=== PATIENT | female | born 1980 | race Caucasian/White ===

== ENCOUNTER 2025-04-18 12:19 | Emergency (ER) | payer OTHER, SELFPAY ==
[2025-04-18 12:19] VITALS: BP 174/100; PULSE 108; RESP 18; TEMP 36.9; O2SAT 98; BMI 33.5
--- NOTE | 2025-04-18 14:08 | EKG12_ITS ---
Test Reason : ANXIETY Blood Pressure : */* mmHG Vent. Rate : 102 BPM Atrial Rate : 102 BPM P-R Int : 132 ms QRS Dur : 106 ms QT Int : 350 ms P-R-T Axes : 61 8 22 degrees QTcB Int : 456 ms Sinus tachycardia Otherwise normal ECG Confirmed by Julian Shipman ([id number]), photo editor PERRY MATHEW ([id number]) on 04/22/2025 6:16:52 AM Referred By: Confirmed By: Julian Shipman
[2025-04-18] MEDS: 0.9% Normal Saline (1000mL) 1,000 ML 999 ML IV (14:19)
[2025-04-18 14:29] LABS: Hematocrit 40.3 % (37-47); Hemoglobin 13.1 g/dL (12.0-15.0); Immature Granulocytes Count 0.070 X10^3/uL (0.0-0.0); Mean Corp Hgb Conc 32.5 g/dL (32-36); Mean Corpuscular Volume 85.7 fL (81-99); Mean Platelet Vol. 9.8 fl (6.2-12.0); NRBC Flagged by Analyzer 0 % (0-5); Platelet Count 263 K/mm3 (150-450); RBC Distribution Width CV 13.5 % (11.6-14.6); RBC Distribution Width SD 42.3 fl (35.1-43.9); Red Blood Count 4.70 M/mm3 (4.2-5.4); White Blood Count 7.1 K/mm3 (4.4-11.0)
--- NOTE | 2025-04-18 14:30 | RAD_ITS ---
PROCEDURE: CHEST PA AND LATERAL 04/18/2025 REASON FOR EXAM: COUGH TECHNIQUE: Procedure Code: RADCXR Modality: DX Procedure: CHEST PA AND LATERAL FINDINGS: No focal consolidation. No pleural effusion or pneumothorax. Cardiac silhouette is within normal limits. No acute fractures. RAD/Chest PA and Lateral IMPRESSION: No focal consolidations. Reading Location: [facility]
[2025-04-18 15:09] LABS: AST(SGOT) 20 U/L (<=31); Alanine Aminotransfer ALT/SGPT 35 U/L (<=34); Albumin, Serum 4.0 g/dL (3.5-5.0); Alkaline Phosphatase 63 U/L (35-104); Anion Gap 11 (7-18); BUN 8 mg/dL (4-19); BUN/Creat Ratio 12.2 RATIO (10-20); Calcium,Total 9.3 mg/dL (7.6-11.0); Carbon Dioxide 24.5 mmol/L (20.0-29.0); Chloride 104 mmol/L (96-106); Estimated Creatinine Clearance 120.37 ml/min (50-250); Globulin 3.3 g/dL (2.2-4.2); Glucose 92 mg/dL (70-99); Potassium 3.8 mmol/L (3.5-5.1)
--- NOTE | 2025-04-18 15:26 | CM.ED ---
Social work Reason for referral: mental health/anxiety Referral source: Dr Vinny Casillas asked SW to talk with patient regarding patient's anxiety and provide patient with necessary resources. SW entered patient's room, introducing self and role at [facility]. Patient was sitting upright in bed and patient's , Jere, was bedside. Patient thanked SW for coming to speak with patient as patient discussed patient's anxiety to be overwhelming. Patient was tearful throughout conversation and patient stated noticing that patient's anxiety has been increasing over the past year. Patient stated having overwhelming anxiety every day since early February. Patient stated being hard on self and having a lot of health anxiety. Patient states having cycle irregularities that patient believes patient's OBGYN is not taking seriously and wondering if patient's increased anxiety has anything to do with patient possibly being in emili-menopause. Patient states feeling as if patient's OCD tendencies (checking kids' windows each night, checking the stove to make sure it's not still on, checking the door multiple times per night to make sure it is locked, etc) are becoming more than just tendencies. Patient states wishing patient had not let the anxiety get this bad and patient stated willingness to do what it takes now. Patient states having two counseling sessions so far with patient's payloader machine operator. 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 Patient states having a new PCP appointment set up through [facility] in July, though patient stated willingness to go elsewhere should an appointment be available sooner. Patient stated a desire to get back to being me as patient stated usually being so evette-filled. Patient denied feeling suicidal or homicidal and repeatedly stated how good of a life patient has. SW utilized active listening and empathic support throughout conversation. Patient accepted the following resources: [facility] Provider Directory, [email or web address] information, local counseling resources, [employer], [employer] exercises, and coping strategies. Lila Carrillo, OPERATIONS RESEARCH GROUP MANAGER, SURVEILLANCE OPERATOR
--- NOTE | 2025-04-18 15:48 | EDS_ITS ---
HPI History of Present Illness Chief Complaint: Anxiety Narrative Narrative: Patient is a 44-year-old female who presents to the emergency department with a chief complaint of anxiety, cough, congestion. States that she has been not been sleeping well over the last several nights and states that she cannot turn her mind off. Patient states that she followed up with her CLAIMS SUPERVISOR that she did not know if her hormones were off or she is perimenopausal and requested hormonal testing. She states he checked my thyroid and states that it would not be of benefit to check my hormones secondary to her still having a menstrual cycle. She states that he also did not do anything however she went on to state that he did a Pap smear with a biopsy which came back normal. She states that she has not followed up with a counselor yet however she notes that her driver is counselor and is hoping that he also has resources. She denies any suicidal or homicidal ideation. PFSH PFS Medical History no medical history Home Medications ?Medication ?Instructions ?Recorded ?Last Taken ?Type lorazepam 0.5 mg tablet (Ativan) 0.5 mg PO BID PRN anx iety #10 tabs 04/18/25 Unknown Rx Allergy/AdvReac Type Severity Reaction Status Date / Time No Known Allergies Allergy Verified 04/18/25 12:20 Family History no significant family his Surgical History no surgical history Social History Smoking Status: Never smoker ROS ROS ED ROS Narrative Constitutional: Denies any headache, fever, chills Eyes: Denies double vision Cardiovascular: Denies chest pain Respiratory: Denies shortness of breath complains of cough Abdomen: Denies any nausea vomiting diarrhea : Denies urinary symptoms Neurological: Denies numbness, weakness, tingling Musculoskeletal: Denies back pain Skin: Denies any rashes or lesions EXAM Physical Exam Narrative Exam Narrative: General: Patient was lying in bed rest comfortably did not appear to be acute Head: Atraumatic, normocephalic Eyes: PERRL bilaterally, EOMI bilaterally, no conjunctival injection noted Neck: Soft, supple, trachea midline Cardiovascular: Patient tachycardic with a regular rhythm Respiratory: Clear to auscultation bilaterally Abdomen: Soft, nondistended, no tenderness to palpation Extremities: +5/5 strength noted in the bilateral upper and lower extremities Neurological: Patient following commands knew that she was at [facility] year is 2024 Skin: Warm, dry, intact no rashes or lesions noted Const Vital Signs: 04/18/25 12:19 Temperature 98.4 F Temperature Source Oral Pulse Rate 108 H Respiratory Rate 18 Blood Pressure 174/100 H Blood Pressure Mean 124 Pulse Ox 98 Oxygen Delivery Method Room Air MDM MDM MDM Narrative Medical decision making narrative: Patient is a 44-year-old female who presented to the emergency department with concern for cough, congestion, anxiety. On the differential diagnosis includes but not limited to electrolyte abnormality, anxiety, panic attack, depression. Once workup is obtained reviewed she will be reevaluated. Once again she states that she is not suicidal nor she homicidal. I did request social work, and provide her additional resources and to evaluate her further. Patient CBC was reviewed and showed a white blood count is normal at 7.1, hemoglobin stable 13.1, plate count of 263. Patient sodium normal 140, potassium normal 3.8, creatinine 0.69. Patient AST and ALT were 20 and 35 respectively. Patient's chest x-ray was reviewed as well by myself and by radiology showed no acute cardiopulmonary processes. Discussed results with the patient and on reevaluation she is feeling better she would like to go home. Social work did notify me that they provide her additional resources and she is okay to go home. She was advised to use these resources and she was encouraged to continue supportive care for her upper respiratory infection likely secondary viral etiology. She will be given a prescription for as needed Ativan for her panic attacks. She is encouraged return with worsening symptoms or concerns she is agreeable to plan all question concerns answered she was discharged home in stable condition. Lab Data Labs: Laboratory Results - last 24 hr 04/18/25 14:20 WBC 7.1 RBC 4.70 Hgb 13.1 Hct 40.3 MCV 85.7 MCH 27.9 MCHC 32.5 RDW Std Deviation 42.3 RDW Coeff of Pedrito 13.5 Plt Count 263 MPV 9.8 Immature Gran % (Auto) 1.000 H Neut % (Auto) 74.9 H Lymph % (Auto) 17.3 L Sublette % (Auto) 5.5 Eos % (Auto) 0.6 Baso % (Auto) 0.7 Absolute Neuts (auto) 5.3 Absolute Lymphs (auto) 1.23 Nucleated RBC % 0 Sodium 140 Potassium 3.8 Chloride 104 Carbon Dioxide 24.5 Anion Gap 11 BUN 8 Creatinine 0.69 L Estim Creat Clear Calc 120.37 Est GFR (MDRD) Non-Af 110 BUN/Creatinine Ratio 12.2 Glucose 92 Calcium 9.3 Total Bilirubin 0.48 AST 20 ALT 35 Alkaline Phosphatase 63 Total Protein 7.4 Albumin 4.0 Globulin 3.3 Albumin/Globulin Ratio 1.2 Radiography Diagnostic Testing: Clinical Impression(s) from Imaging Studies Chest X-Ray 04/18/25 14:30 IMPRESSION: No focal consolidations. Reading Location: [facility] Discharge Plan Triage Chief Complaint: Anxiety ED Provider: Enmanuel Casillas Dx/Rx/DC Orders Clinical Impression: Anxiety, Upper respiratory infection, viral, Encounter for medical screening examination Prescriptions: New lorazepam [Ativan] 0.5 mg tablet 0.5 mg PO BID PRN (Reason: anxiety) Qty: 10 0RF Primary Care Provider: Care Physician,No Primary Referrals: Matthew Bales MD [Med Staff - Active Staff, Family Practice] Care Physician,No Primary [Primary Care Provider, Medical] Activity Restrictions/Additional Instructions: Follow-up with a primary care physician that you were referred to. Return with worsening symptoms or any concerns. Your blood work did not show acute findings your chest x-ray is normal and your EKG was normal as well. Use the resources that you are provided with as well. Use Ativan as prescribed do not operate anything under the influence this medication is can make you sleepy and drowsy. Print Language: Portuguese Disposition Disposition: Home, Self Care
[2025-04-18 16:02] VITALS: BP 153/85; PULSE 93; RESP 15; O2SAT 97
[2025-04-18 16:03] VITALS: BP 153/85; PULSE 93; RESP 15; TEMP 36.9; O2SAT 97
== END 2025-04-18 16:04 | disposition home or self-care (01) ==
PROVIDERS: Emergency Provider Emergency Medicine; Visit Provider Emergency Medicine
DX: J06.9 Acute upper respiratory infection, unspecified (principal); F41.9 Anxiety disorder, unspecified
CPT/HCPCS: 71046; 80053; 85025; 93005; 96360; 96361; 99283; A4216